=== PATIENT | female | born 1940 | race Caucasian/White ===

== ENCOUNTER → 2017-02-06 | Outpatient (CLI) | payer MEDICARE, OTHER ==
[~2017-02-06] MED LIST: ASPI-515 PO; ESTR0.5T3 PO; INSU100C5 SQ-INSULIN; INSU100V13 SC; LEVO150T PO; LORA-446 PO; METF500T4 PO; ZOLP5TAB6 PO
[2017-02-06 15:19] LABS: BLOOD UREA NITROGEN 17 mg/dL (7-18)
[2017-02-06 15:24] LABS: TOTAL IRON BINDING CAPACITY 305 mcg/dL (250-450)
== END | disposition home or self-care (01) ==
LOC: STAR 13:51
PROVIDERS: ATTEND Internal Medicine Cardiovascular Disease
DX: Z01.818 Encounter for other preprocedural examination (principal); E11.9 Type 2 diabetes mellitus without complications; M43.8X4 Other specified deforming dorsopathies, thoracic region
CPT/HCPCS: 36415; 71020; 80048; 83540; 83550; 85025

== ENCOUNTER 2017-02-10 10:05 | Day surgery (SDC) | payer MEDICARE, OTHER ==
[2017-02-06 14:19] VITALS: BP 146/67
[~2017-02-10] VITALS: Ht 172.7 cm; Wt 63.6 kg
[2017-02-10] MEDS ORDERED: MIDAZOLAM 1 MG/ML, 5ML ONE (12:13)
[2017-02-10] MEDS ORDERED: TICAGRELOR 90 MG TABLET ONE (12:13)
[2017-02-10] MEDS ORDERED: VERAPAMIL 2.5 MG/ML, 2ML ONE (12:13)
[2017-02-10] MEDS ORDERED: FENTANYL PF 100 MCG/2ML ONE (12:13)
[2017-02-10] MEDS ORDERED: NITROGLYCERIN 5 MG/ML, 10ML ONE (12:13)
[2017-02-10] MEDS ORDERED: BIVALIRUDIN 250 MG ONE (12:14)
[2017-02-10] MEDS ORDERED: HEPARIN 1,000 UNITS/ML, 10ML ONE (12:14)
[2017-02-10] MEDS ORDERED: LIDOCAINE 2%, 20ML ONE (12:14)
[2017-02-10] MEDS ORDERED: ACETAMINOPHEN 325 MG TABLET PO PRN (13:00)
== END 2017-02-10 15:00 ==
LOC: CACL 10:05
PROVIDERS: ATTEND Internal Medicine Cardiovascular Disease
DX: I25.10 Atherosclerotic heart disease of native coronary artery without angina pectoris (principal); E11.42 Type 2 diabetes mellitus with diabetic polyneuropathy; E78.5 Hyperlipidemia, unspecified; Z79.82 Long term (current) use of aspirin; Z88.6 Allergy status to analgesic agent; Z88.0 Allergy status to penicillin; Z88.8 Allergy status to other drugs, medicaments and biological substances
CPT/HCPCS: 93460; 99156; C1894; J1644; J2250; J3010; J3490; Q9967; J0583

== ENCOUNTER → 2017-02-12 | Outpatient (CLI) | payer MEDICARE, OTHER ==
[2017-02-12 13:19] LABS: BLOOD UREA NITROGEN 21 mg/dL (7-18)
== END | disposition home or self-care (01) ==
LOC: LAB 11:56
PROVIDERS: ATTEND Internal Medicine Cardiovascular Disease
DX: D50.9 Iron deficiency anemia, unspecified (principal); R06.00 Dyspnea, unspecified
CPT/HCPCS: 36415; 80048

== ENCOUNTER 2019-08-25 10:25 | Outpatient (CLI) | payer MEDICARE, OTHER ==
[~2019-08-25 10:25] MED LIST changes: +METF500T17 PO; -METF500T4 PO
== END 2019-08-25 23:59 | disposition home or self-care (01) ==
LOC: CARD 10:25
PROVIDERS: ATTEND Internal Medicine
DX: Z01.810 Encounter for preprocedural cardiovascular examination (principal)
CPT/HCPCS: 93017